=== PATIENT | male | born 1955 | race Caucasian/White ===

== ENCOUNTER 2018-09-12 16:03 | Observation (INO) | payer OTHER ==
[2018-09-12] MEDS ORDERED: ACETAMINOPHEN 325 MG TAB PO PRN (18:56)
[2018-09-12] MEDS ORDERED: ONDANSETRON DISINTEGRATING 4 MG TAB PO PRN (18:56)
[2018-09-12] MEDS ORDERED: ONDANSETRON 4 MG/2 ML VIAL IVP PRN (18:56)
[2018-09-12] MEDS ORDERED: IBUPROFEN 200 MG TAB PO PRN (18:56)
[2018-09-12] MEDS: D5W 1/2 NS W/ 20 KCl/L 1,000 ML IV SCH (21:13)
--- NOTE | 2018-09-12 21:49 | GHP ---
DATE OF ADMISSION: 09/12/2018 CHIEF COMPLAINT: Abdominal pain. HISTORY OF PRESENT ILLNESS: This is a 62-year-old male, who was transferred from [facility] for insurance purposes, who presented there earlier today with abdominal pain. Briefly, the patient states that last night he had fairly excruciating right lower quadrant abdominal pain. He did not re ally sleep much throughout the night. He awoke this morning, actually felt a little bit better. He called his primary care physician, who said that they could fit him in sometime this afternoon but th at they did not really have any imaging capabilities. Because of this, he subsequently presented int o the emergency department for further workup. Briefly, he went to [facility] this afternoon, around 2 p.m., complaining of right lower quadrant pain. At that point in time, i t was sharp, worse with palpation. He endorsed having nausea and vomiting with this. Subsequently, there, he did have a significant leukocytosis, but a CT scan that was really under-whelming with a no nvisualized appendix. He received IV antibiotics and pain medications there. Given his examination and elevated white blood cell count, the plan was to transfer him here for definitive care for insura nce purposes. On my evaluation of the patient, he states that currently he feels well. He does have a little vague right lower quadrant pain, but the pain that he was experiencing previously is gone. He denies cristobali ng any current fevers, chills, nausea, or vomiting, and otherwise feels well. PAST MEDICAL HISTORY: Significant for bladder cancer. PAST SURGICAL HISTORY: None. CURRENT MEDICATIONS: Prozac. ALLERGIES: None. FAMILY HISTORY: Noncontributory. REVIEW OF SYSTEMS: A full 10-point review was performed. PHYSICAL EXAMINATION: VITAL SIGNS: Temperature is 36.6, heart rate is 52, blood pressure is 117/64. He is saturating 98% on room air. CONSTITUTIONAL: He appears comfortable, in no apparent distress . EYES: His pupils are equal, round, and reactive to light and accommodation. He has anicteric scl erae. His extraocular movements are intact. EARS/NOSE/MOUTH/THROAT: He has moist mucous membranes. His hearing is normal. He has normal dentition. CARDIOVASCULAR: He has a regular rate and rhythm without any murmurs, rubs, or gallops. RESPIRATORY: He has no respiratory distress, rales, or rhon chi. GI: His abdomen is soft. He has normoactive bowel sounds. It is nondistended, nontender. Th ere is no rebound tenderness or guarding. There is really no tenderness at all in his entire abdomen . SKIN: Warm. Normal color. No rashes. MUSCULOSKELETAL: Full strength. No tenderness. Normal joint range of motion. NEUROLOGIC: He is alert and oriented x3. His cranial nerves 2-12 are intact . He has no weakness, no numbness. PSYCH: He is interacting appropriately. He is not anxious or e ncephalopathic. LYMPH/HEME/IMMUNOLOGIC: He has no cervical, groin, or supraclavicular lymphadenopat hy appreciated. LABS: From [facility] show a leukocytosis to 22,000 with a left shift. Remainder is unremarkable. CT s can performed at [facility], the patient did bring a disk of this here. I personally reviewed the images . They show a nonvisualized appendix. No intraabdominal free fluid or free air. Normal gallbladder . Really, other than his known bladder cancer, there are not any other acute significant findings. ASSESSMENT AND PLAN: 62-year-old male with abdominal pain, question appendicitis. After examining the patient and reviewing his CT scan, I am not 100% sure whether or not he has appen dicitis. Typically, with such a presentation and exam, patients typically with appendicitis have a p retty easily visualized appendix on CT scan, which I cannot see. Currently, the patient is overall w ell-appearing with no abdominal pain. It is unclear whether or not he had some gastritis or enteriti s, but I do not feel that he currently has appendicitis. Plan will be to monitor him overnight off a ntibiotics. Reexamination in the morning. I feel that if this is appendicitis, it will progress off antibiotics, and we can make plans for the operating room at that point in time. The patient is josiah nable. We will plan for hydration and reexamination in the morning. /[id number]/MODL
[2018-09-13] MEDS ORDERED: KETOROLAC 15 MG/1 ML SDV IVP PRN (00:27)
[2018-09-13 04:40] LABS: PLATELET COUNT 353 10^3/uL (150-400)
[2018-09-13] MEDS: D5W 1/2 NS W/ 20 KCl/L 1,000 ML IV SCH (07:20)
--- NOTE | 2018-09-13 09:16 | ASDISCHSUM ---
Discharge Information Plan Status:Home with No Needs Medically Cleared to Leave: Discharge Date: D/C Disposition:Home, Routine, Self-Care ADT D/C Disposition:Home, Routine, Self-Care Projected Discharge Date:09/13/2018 12:00 AM Transportation at D/C:Family Discharge Delay Reason: Follow-Up Date:09/13/2018 12:00 AM Discharge Slot: Final Diagnosis: Placement Information Patient Contact Information Contact Name:GUERITA Relationship: Address: Home Phone: Work Phone: City: Alternate Phone: State/[place] Code: Email: Financial Information Financial Class:BCOP Primary Plan Desc:[facility] PLAN Primary Plan Number:[id number] Secondary Plan Desc: Secondary Plan Number: Assessment Information LACE LACE Length of stay for Answers: Less than 1 day current admission Acuity / Level of Answers: No Care: Did the patient have an inpatient admission? Comorbidities - select Answers: Any tumor (including all that apply lymphoma or leukemia) # of Emergency department Answers: 0 visits in the last 6 months Social determinants Answers: History of substance abuse (ETOH, street drugs, prescription drugs, etc.) Mental health diagnosis (anxiety, depression, pers onality disorders, etc.) Score: 8 Date Signed: 09/13/2018 09:15 AM Electronically Signed By:JEREMIAS Braun Case Management Discharge Plan Note Case Management Discharge Discharge Order Complete? Answers: Yes Patient to Obtain Answers: via Family Medications Transportation Arranged Answers: Family/Friends Discharge Comments Notes: Pt reports he is feeling well. Was walking up in the room. Says son will sampler pickup. No other CM needs identified. Will follow up with PCP. Date Signed: 09/13/2018 09:14 AM Electronically Signed By:JEREMIAS Braun Intervention Information
--- NOTE | 2018-09-13 09:25 | SOAPPROG ---
SOAP Progress Note Assessment/Plan: Assessment/Plan: 62 Y M abdominal pain, r/o appendicitis. Pain is improved this am. Did have toradol overnight. Doubt appendicitis. Will trial regular diet. If does well, can d/c to home. Rx tramadol. Outpatient f/u planned. Patient understands s/s of worsening and need for f/u in these situations, either via call/clinic or ED. S: less pain. O: alert, nad mmm ctab rrr abd soft, nontender to deep palp 09/13/18 09:22 Objective: Vital Signs Temp Pulse Resp BP Pulse Ox 36.0 C 64 16 115/58 L 95 09/13/18 08:00 09/13/18 08:00 09/13/18 08:00 09/13/18 08:00 09/13/18 08:00 Laboratory Results 09/13/18 04:28 09/12/18 09/13/18 09/14/18 05:59 05:59 05:59 Intake Total 500 879 Balance 500 879 ICD10 Worksheet Patient Problems: Problems Problem Status Onset Abdominal pain Acute - ICD10 Problem Qualifiers (1) Abdominal pain Qualifiers: Abdominal location: generalized Qualified Code(s): R10.84 - Generalized abdominal pain
[2018-09-13 11:43] VITALS: BP 113/69
== END 2018-09-13 12:53 | disposition home or self-care (01) ==
LOC: F1N 17:56
PROVIDERS: ADMIT Surgery; ATTEND Surgery
DX: R10.31 Right lower quadrant pain (principal); Z85.51 Personal history of malignant neoplasm of bladder
CPT/HCPCS: G0378 ×2; J1885

== ENCOUNTER → 2018-09-23 | Outpatient (CLI) | payer OTHER | LOC: FIMAGING 09:59 | PROVIDERS: ATTEND Internal Medicine Hematology & Oncology | DX: C67.9 Malignant neoplasm of bladder, unspecified (principal) | CPT/HCPCS: 78306; A9503 ==

== ENCOUNTER → 2019-01-09 | Outpatient (CLI) | payer OTHER | LOC: FIMAGING 09:53 | PROVIDERS: ATTEND Internal Medicine Hematology & Oncology | DX: C67.9 Malignant neoplasm of bladder, unspecified (principal) | CPT/HCPCS: 78306; A9503 ==